=== PATIENT | male | born 1945 | race Caucasian/White ===

== ENCOUNTER 2019-02-22 10:20 | Day surgery (SDC) | payer MEDICARE, OTHER ==
[2019-02-21 10:38] LABS: BASOPHILS # (AUTO) 0.1 X10'3 (0-0.2); BASOPHILS % (AUTO) 1.3 % (0-1); EOSINOPHILS # (AUTO) 0.4 X10'3 (0-0.9); EOSINOPHILS % (AUTO) 5.3 % (0-6); HEMATOCRIT 39.4 % (42.0-52.0); HEMOGLOBIN 12.8 g/dl (14.0-17.9); LYMPHOCYTES # (AUTO) 1.5 X10'3 (1.1-4.8); LYMPHOCYTES % (AUTO) 19.8 % (21-51); MEAN CORPUSCULAR HEMOGLOBIN 30.7 PG (27.0-31.0); MEAN CORPUSCULAR HGB CONC 32.5 g/dL (33.0-36.5); MEAN CORPUSCULAR VOLUME 94.5 FL (78-98); MEAN PLATELET VOLUME 8.3 FL (7.4-10.4); MONOCYTES # (AUTO) 0.9 X10'3 (0-0.9); MONOCYTES % (AUTO) 11.9 % (2-12); NEUTROPHILS # (AUTO) 4.6 X10'3 (1.8-7.7); NEUTROPHILS % (AUTO) 61.7 % (42-75); PLATELET COUNT 327 X10'3 (140-440); RED BLOOD COUNT 4.17 X10'6 (4.70-6.10); RED CELL DISTRIBUTION WIDTH 14.8 % (11.5-14.5); WHITE BLOOD COUNT 7.5 X10'3 (4.5-11.0)
[2019-02-21 10:50] LABS: INR 1.1 INR; PARTIAL THROMBOPLASTIN TIME 29 SECONDS (22-32)
[2019-02-21 10:52] LABS: ALBUMIN 2.4 G/DL (3.4-5.0); ANION GAP 4 (8-16); BLOOD UREA NITROGEN 89 MG/DL (7-18); BUN/CREATININE RATIO 35.2 (5.4-32.0); CALCIUM 8.7 MG/DL (8.5-10.1); CHLORIDE 102 MMOL/L (99-107); CREATININE 2.53 MG/DL (0.60-1.10); GLUCOSE 192 MG/DL (70-104); POTASSIUM 4.2 MMOL/L (3.5-5.1); SODIUM 140 MMOL/L (135-145); TOTAL CARBON DIOXIDE 34.3 MMOL/L (24-32); eGFR 25 ML/MIN
[~2019-02-22] VITALS: Ht 175.3 cm; Wt 70.2 kg
[2019-02-22] VITALS (8 sets, daily range): BP systolic 127–134; BP diastolic 79–96
[2019-02-22] MEDS ORDERED: LORazepam 0.5 MG tablet PO PRN (10:40)
[2019-02-22] MEDS ORDERED: normal saline 1,000 ML IV SCH (10:40)
[2019-02-22] MEDS ORDERED: diphenhydrAMINE 25mg capsule PO PRN (10:40)
[2019-02-22] MEDS ORDERED: ASPI81TA52 PO (11:10)
[2019-02-22] MEDS ORDERED: PRED5TAB PO (11:10)
[2019-02-22] MEDS ORDERED: ONDA4TAB12 SL (11:10)
[2019-02-22] MEDS ORDERED: FURO40TA4 PO (11:10)
[2019-02-22] MEDS ORDERED: ALLO100T PO (11:10)
[2019-02-22] MEDS ORDERED: EZET10TA13 PO (11:10)
[2019-02-22] MEDS ORDERED: FLO0.4C PO (11:10)
[2019-02-22] MEDS ORDERED: NPH,100V SQ (11:10)
[2019-02-22] MEDS ORDERED: CARV-50 PO (11:10)
[2019-02-22] MEDS ORDERED: INSU100V5 IJ (11:10)
[2019-02-22] MEDS ORDERED: VENL75CA55 PO (11:10)
[2019-02-22] MEDS ORDERED: OMEP1CAP24 PO (11:10)
[2019-02-22] MEDS ORDERED: HYDR-4353 PO (11:10)
[2019-02-22] MEDS ORDERED: ALEN70TA60 PO (11:10)
[2019-02-22] MEDS ORDERED: midazolam 2 mg/2 ml injection ONE (12:36)
[2019-02-22] MEDS ORDERED: fentaNYL/PF 50MCG/1 ML 2ML syringe ONE (12:36)
[2019-02-22] MEDS ORDERED: LIDOcaine 1% (10mg/ml)w/preservative injection 20ml MDV ONE (12:36)
[2019-02-22] MEDS ORDERED: iohexol 350MG/ML 100ml bottle IV ONE (12:37)
[2019-02-22] MEDS ORDERED: proCHLORperazine 10 MG/2 ml inj IV PRN (13:50)
[2019-02-22] MEDS ORDERED: ondansetron/PF 4mg/2ml inj IV PRN (13:50)
[2019-02-22] MEDS ORDERED: OXAZEpam 15mg capsule PO PRN (13:50)
[2019-02-22] MEDS ORDERED: HYDROcodone/acetaminophen 5mg/325mg tablet PO PRN (13:55)
[2019-02-22] MEDS: HYDROcodone/acetaminophen 10/325mg tab PO PRN ×2 (14:21→17:32)
--- NOTE | 2019-02-22 15:25 | NUR ---
Pt HOB raised at 12:15 per MD orders-no changes in groin site, pt denies pain, pedal pulses X4 doppler.
== END 2019-02-22 17:07 | disposition home or self-care (01) ==
LOC: SSTAY O 10:20
PROVIDERS: ATTEND Internal Medicine Interventional Cardiology
DX: I25.118 Atherosclerotic heart disease of native coronary artery with other forms of angina pectoris (principal); I34.0 Nonrheumatic mitral (valve) insufficiency; G47.33 Obstructive sleep apnea (adult) (pediatric); E11.22 Type 2 diabetes mellitus with diabetic chronic kidney disease; E11.51 Type 2 diabetes mellitus with diabetic peripheral angiopathy without gangrene; I13.0 Hypertensive heart and chronic kidney disease with heart failure and stage 1 through stage 4 chronic kidney disease, or unspecified chronic kidney disease; K21.9 Gastro-esophageal reflux disease without esophagitis; M10.9 Gout, unspecified; I50.9 Heart failure, unspecified; M81.0 Age-related osteoporosis without current pathological fracture; N18.9 Chronic kidney disease, unspecified; Z79.899 Other long term (current) drug therapy; Z79.4 Long term (current) use of insulin; Z79.82 Long term (current) use of aspirin; Z99.2 Dependence on renal dialysis; Z87.891 Personal history of nicotine dependence
CPT/HCPCS: 36415; 80048; 82948; 85025; 85610; 85730; 93458; 99152; A6257; J1644; J2001; J2250; J3010; J7030; Q0163; Q9967; A4620; C1769

== ENCOUNTER 2019-03-08 15:24 | Inpatient (IN) | payer MEDICARE, OTHER ==
[~2019-03-08] VITALS: Ht 175.3 cm; Wt 69.1 kg
[~2019-03-08 15:24] MED LIST: ALEN70TA60 PO; ALLO100T PO; ASPI81TA52 PO; CARV-50 PO; EZET10TA13 PO; FLO0.4C PO; FURO40TA4 PO; HYDR-4353 PO; INSU100V5 SQ; NPH,100V SQ; OMEP1CAP24 PO; ONDA4TAB12 SL; PRED5TAB PO; VENL75CA55 PO
[2019-03-08 16:23] LABS: BASOPHILS # (AUTO) 0.1 X10'3 (0-0.2); BASOPHILS % (AUTO) 0.8 % (0-1); EOSINOPHILS # (AUTO) 0.2 X10'3 (0-0.9); HEMATOCRIT 35.5 % (42.0-52.0); HEMOGLOBIN 11.5 g/dl (14.0-17.9); LYMPHOCYTES # (AUTO) 0.7 X10'3 (1.1-4.8); LYMPHOCYTES % (AUTO) 9.8 % (21-51); MEAN CORPUSCULAR HEMOGLOBIN 30.4 PG (27.0-31.0); MEAN CORPUSCULAR HGB CONC 32.5 g/dL (33.0-36.5); MEAN CORPUSCULAR VOLUME 93.7 FL (78-98); MEAN PLATELET VOLUME 8.4 FL (7.4-10.4); MONOCYTES # (AUTO) 1.4 X10'3 (0-0.9); MONOCYTES % (AUTO) 20.5 % (2-12); NEUTROPHILS # (AUTO) 4.6 X10'3 (1.8-7.7); NEUTROPHILS % (AUTO) 65.9 % (42-75); PLATELET COUNT 214 X10'3 (140-440); RED BLOOD COUNT 3.79 X10'6 (4.70-6.10); RED CELL DISTRIBUTION WIDTH 15.4 % (11.5-14.5); WHITE BLOOD COUNT 6.9 X10'3 (4.5-11.0)
[2019-03-08 16:42] LABS: ALANINE AMINOTRANSFERASE 29 U/L (12-78); ALBUMIN 2.3 G/DL (3.4-5.0); ALBUMIN/GLOBULIN RATIO 0.5 (1.1-1.5); ALKALINE PHOSPHATASE 255 IU/L (46-116); ASPARTATE AMINO TRANSFERASE 21 U/L (10-37); BILIRUBIN,TOTAL 0.4 MG/DL (0.1-1.0); BLOOD UREA NITROGEN 88 MG/DL (7-18); BUN/CREATININE RATIO 16.2 (5.4-32.0); CALCIUM 8.5 MG/DL (8.5-10.1); CREATININE 5.42 MG/DL (0.60-1.10); GLUCOSE 224 MG/DL (70-104); TOTAL CARBON DIOXIDE 27.4 MMOL/L (24-32); TOTAL PROTEIN 6.8 G/DL (6.4-8.2); eGFR 10 ML/MIN
[2019-03-08 16:43] LABS: PARTIAL THROMBOPLASTIN TIME 35 SECONDS (22-32)
[2019-03-08] MEDS: DOBUTamine-DoBUTrex 500mg/D5W 250 ML IV SCH (17:30)
--- NOTE | 2019-03-08 17:30 | NUR ---
family would like to be called if there is any change in condition, Imelda courtneyr in law
[2019-03-08] MEDS ORDERED: OMEP20CA10 PO (17:37)
[2019-03-08] MEDS ORDERED: LISI2.5T2 PO (17:37)
[2019-03-08] MEDS ORDERED: LAMO25TA94 PO (17:37)
[2019-03-08] MEDS ORDERED: VENL37.589 PO (17:37)
[2019-03-08] MEDS ORDERED: NPH,100V SQ (17:37)
[2019-03-08 17:55] LABS: ANION GAP 9 (8-16); CHLORIDE 97 MMOL/L (99-107); SODIUM 133 MMOL/L (135-145)
[2019-03-08] MEDS ORDERED: acetaminophen 325mg tablet PO PRN (19:50)
[2019-03-08] MEDS ORDERED: HYDROcodone/acetaminophen 10/325mg tab PO PRN (19:50)
[2019-03-08] MEDS ORDERED: ondansetron/PF 4mg/2ml inj IV PRN (19:50)
[2019-03-08] MEDS: carVEDilol 12.5mg tablet PO SCH (20:00)
[2019-03-08] MEDS: furosemide 40mg tablet PO SCH (20:00)
[2019-03-08] MEDS ORDERED: dextrose ORAL solution 15 GM/59 ML bottle PO PRN ×2 (20:05)
[2019-03-08] MEDS ORDERED: MESSAGE TO PHARMACY PO ONE (20:05)
[2019-03-08] MEDS ORDERED: glucagon, human recombinant 1mg kit SUBCUT PRN (20:05)
[2019-03-08] MEDS ORDERED: dextrose 50%-water 50ml dispensing syringe IV PRN ×2 (20:05)
[2019-03-08] MEDS: lamoTRIgine 25mg tablet PO SCH (20:11)
[2019-03-08 20:32] LABS: HEMOGLOBIN A1C 7.4 % (4.5-6.2)
--- NOTE | 2019-03-08 20:34 | NUR ---
Rec'd report for CAROLYN Villanueva in the ER.
--- NOTE | 2019-03-08 20:39 | NUR ---
SBP SUB 100, COREG AND LASIX HELD.
--- NOTE | 2019-03-08 21:00 | NUR ---
Arrived from ER on a gurney, but was able to ambulate to bed with use of his cane.
[2019-03-08 21:45] VITALS: BP 99/52
[2019-03-08 22:00] VITALS: BP 110/46
[2019-03-08] MEDS: heparin, porcine 5000 units/ml vial SQ SCH (22:00)
[2019-03-08] MEDS: insulin glargine (Lantus) pen - multi-dose SQ SCH (22:03)
[2019-03-09] VITALS (14 sets, daily range): BP systolic 93–125; BP diastolic 38–63
--- NOTE | 2019-03-09 06:19 | NUR ---
Problems reprioritized. Patient report given, questions answered & plan of care reviewed with CAROLYN Cordoba.
--- NOTE | 2019-03-09 06:30 | NUR ---
Patient in room MED 314. I have received report from Eileen LEON and had the opportunity to ask questions and assume patient care.
[2019-03-09 06:58] LABS: PARTIAL THROMBOPLASTIN TIME 37 SECONDS (22-32)
[2019-03-09 07:01] LABS: EOSINOPHILS # (AUTO) 0.2 X10'3 (0-0.9); LYMPHOCYTES # (AUTO) 0.8 X10'3 (1.1-4.8); MEAN CORPUSCULAR HEMOGLOBIN 30.8 PG (27.0-31.0)
[2019-03-09 07:02] LABS: ALANINE AMINOTRANSFERASE 23 U/L (12-78); ALBUMIN 2.1 G/DL (3.4-5.0); ALBUMIN/GLOBULIN RATIO 0.5 (1.1-1.5); ALKALINE PHOSPHATASE 241 IU/L (46-116); ANION GAP 9 (8-16); ASPARTATE AMINO TRANSFERASE 11 U/L (10-37); BILIRUBIN,TOTAL 0.6 MG/DL (0.1-1.0); BLOOD UREA NITROGEN 83 MG/DL (7-18); BUN/CREATININE RATIO 16.1 (5.4-32.0); CALCIUM 8.7 MG/DL (8.5-10.1); CHLORIDE 96 MMOL/L (99-107); CREATININE 5.16 MG/DL (0.60-1.10); GLUCOSE 338 MG/DL (70-104); POTASSIUM 4.3 MMOL/L (3.5-5.1); SODIUM 133 MMOL/L (135-145); TOTAL CARBON DIOXIDE 27.6 MMOL/L (24-32); TOTAL PROTEIN 6.4 G/DL (6.4-8.2); eGFR 11 ML/MIN
[2019-03-09 07:03] LABS: BASOPHILS % (AUTO) 0.4 % (0-1); EOSINOPHILS % (AUTO) 2.7 % (0-6); HEMATOCRIT 33.4 % (42.0-52.0); LYMPHOCYTES % (AUTO) 10.2 % (21-51); MEAN CORPUSCULAR VOLUME 93.1 FL (78-98); MEAN PLATELET VOLUME 9.4 FL (7.4-10.4); MONOCYTES # (AUTO) 1.9 X10'3 (0-0.9); MONOCYTES % (AUTO) 23.1 % (2-12); NEUTROPHILS # (AUTO) 5.1 X10'3 (1.8-7.7); NEUTROPHILS % (AUTO) 63.6 % (42-75); PLATELET COUNT 222 X10'3 (140-440); RED BLOOD COUNT 3.59 X10'6 (4.70-6.10); RED CELL DISTRIBUTION WIDTH 14.7 % (11.5-14.5); WHITE BLOOD COUNT 8.1 X10'3 (4.5-11.0)
--- NOTE | 2019-03-09 07:30 | NUR ---
Patient is wearing his Lifevest, but the battery is , and his second battery is on the payroll administrator at home. Patient called a family member who stated they will bring in the backup battery later (but could not give RN a time estimate). Called Netta with [employer] to see if they could bring in a backup battery, which unfortunately she cannot. Patient is hooked up to bedside monitor. Will encourage patient to get his backup battery brought in sooner than later.
[2019-03-09] MEDS: tamsulosin 0.4mg capsule PO SCH (08:13)
[2019-03-09] MEDS: ezetimibe 10mg tablet PO SCH (08:13)
[2019-03-09] MEDS: lisinopril 2.5mg tablet PO SCH (08:14)
[2019-03-09] MEDS: aspirin 81mg tablet.DR PO SCH (08:14)
[2019-03-09] MEDS: carVEDilol 12.5mg tablet PO SCH ×2 (08:14→19:27)
[2019-03-09] MEDS: allopurinol 100mg tablet PO SCH (08:14)
[2019-03-09] MEDS: predniSONE 5mg tablet PO SCH (08:15)
[2019-03-09] MEDS: heparin, porcine 5000 units/ml vial SQ SCH ×2 (08:17→19:47)
[2019-03-09] MEDS: insulin Lispro (HumaLOG) vial - multi-dose SQ SCH ×4 (08:35→21:19)
[2019-03-09] MEDS: furosemide 40mg tablet PO SCH ×2 (09:42→19:27)
[2019-03-09] MEDS: lamoTRIgine 25mg tablet PO SCH ×2 (09:42→19:48)
[2019-03-09] MEDS: venlafaxine XR 37.5mg cap (Q24H) PO SCH (09:42)
[2019-03-09] MEDS: venlafaxine XR 75mg capsule (Q24H) PO SCH (09:43)
--- NOTE | 2019-03-09 12:03 | NUR ---
Patients daughter brought in his [employer] physical damage appraiser and back up battery. New battery placed in [employer].
--- NOTE | 2019-03-09 12:56 | NUR ---
DM consult: Pt with T1DM with current A1c 7.4 seen at bedside. Pt denies any questions about DM management at this time. Pt reports seeing an mud car worker every month and states he takes his insulin per rx without any difficulties. Written DM ed with referral to outpatient DM class and RD contact information provided. Pt currently on a renal diet with documented 25% PO intake not meeting nutrient needs. Pt reports low appetite x 2-3 weeks however reports no wt loss. Pt with ESRD on PD, encouraged PO intake of protein to meet the demands of dialysis. Pt states he eats protein bars at home. Pt agreeable to MD raz Cotto. Will continue to follow. Addendum: 03/09/19 at [address] Amended: Links added.
[2019-03-09] MEDS: HYDROcodone/acetaminophen 5mg/325mg tablet PO PRN ×2 (14:13→21:23)
--- NOTE | 2019-03-09 16:00 | NUR ---
Called Dr Samuel to touch base on patient's blood pressures, hanging out 90s/30s. No change in orders.
--- NOTE | 2019-03-09 18:00 | NUR ---
Patient in room MED 314. I have received report from CAROLYN Cordoba and had the opportunity to ask questions and assume patient care.
--- NOTE | 2019-03-09 18:51 | NUR ---
Problems reprioritized. Patient report given, questions answered & plan of care reviewed with Juhi LEON.
[2019-03-09] MEDS: insulin glargine (Lantus) pen - multi-dose SQ SCH (21:18)
[2019-03-10] VITALS (8 sets, daily range): BP systolic 93–131; BP diastolic 53–70
[2019-03-10 05:27] LABS: BASOPHILS # (AUTO) 0.1 X10'3 (0-0.2); BASOPHILS % (AUTO) 1.1 % (0-1); EOSINOPHILS # (AUTO) 0.3 X10'3 (0-0.9); EOSINOPHILS % (AUTO) 4.9 % (0-6); HEMATOCRIT 35.5 % (42.0-52.0); HEMOGLOBIN 11.7 g/dl (14.0-17.9); LYMPHOCYTES # (AUTO) 0.8 X10'3 (1.1-4.8); LYMPHOCYTES % (AUTO) 12.9 % (21-51); MEAN CORPUSCULAR HEMOGLOBIN 30.6 PG (27.0-31.0); MEAN CORPUSCULAR VOLUME 92.6 FL (78-98); MEAN PLATELET VOLUME 9.2 FL (7.4-10.4); MONOCYTES # (AUTO) 1.4 X10'3 (0-0.9); MONOCYTES % (AUTO) 21.5 % (2-12); NEUTROPHILS # (AUTO) 3.8 X10'3 (1.8-7.7); NEUTROPHILS % (AUTO) 59.6 % (42-75); PLATELET COUNT 231 X10'3 (140-440); RED BLOOD COUNT 3.83 X10'6 (4.70-6.10); RED CELL DISTRIBUTION WIDTH 15.2 % (11.5-14.5); WHITE BLOOD COUNT 6.4 X10'3 (4.5-11.0)
[2019-03-10 05:46] LABS: PARTIAL THROMBOPLASTIN TIME 33 SECONDS (22-32)
[2019-03-10 05:52] LABS: ALANINE AMINOTRANSFERASE 20 U/L (12-78); ALBUMIN 2.1 G/DL (3.4-5.0); ALBUMIN/GLOBULIN RATIO 0.5 (1.1-1.5); ALKALINE PHOSPHATASE 230 IU/L (46-116); ANION GAP 9 (8-16); ASPARTATE AMINO TRANSFERASE 9 U/L (10-37); BILIRUBIN,TOTAL 0.5 MG/DL (0.1-1.0); BLOOD UREA NITROGEN 76 MG/DL (7-18); BUN/CREATININE RATIO 14.6 (5.4-32.0); CALCIUM 8.6 MG/DL (8.5-10.1); CHLORIDE 95 MMOL/L (99-107); CREATININE 5.22 MG/DL (0.60-1.10); PHOSPHORUS 6.6 MG/DL (2.3-4.5); POTASSIUM 4.6 MMOL/L (3.5-5.1); SODIUM 132 MMOL/L (135-145); TOTAL PROTEIN 6.6 G/DL (6.4-8.2); eGFR 11 ML/MIN
--- NOTE | 2019-03-10 06:20 | NUR ---
Patient in room MED 314. I have received report from CAROLYN LEAHY, and had the opportunity to ask questions and assume patient care.
[2019-03-10 06:24] LABS: GLUCOSE 468 MG/DL (70-104)
--- NOTE | 2019-03-10 06:28 | NUR ---
Problems reprioritized. Patient report given, questions answered & plan of care reviewed with CAROLYN Vogt.
[2019-03-10 07:28] LABS: TOTAL CELLS COUNTED 100
[2019-03-10 07:29] LABS: ANISOCYTOSIS 1+; PLATELET ESTIMATE NORMAL
[2019-03-10] MEDS: tamsulosin 0.4mg capsule PO SCH (07:43)
[2019-03-10] MEDS: lamoTRIgine 25mg tablet PO SCH (07:43)
[2019-03-10] MEDS: aspirin 81mg tablet.DR PO SCH (07:43)
[2019-03-10] MEDS: predniSONE 5mg tablet PO SCH (07:43)
[2019-03-10] MEDS: allopurinol 100mg tablet PO SCH (07:44)
[2019-03-10] MEDS: ezetimibe 10mg tablet PO SCH (07:44)
[2019-03-10] MEDS: lisinopril 2.5mg tablet PO SCH (07:44)
[2019-03-10] MEDS: carVEDilol 12.5mg tablet PO SCH (07:44)
[2019-03-10] MEDS: furosemide 40mg tablet PO SCH (07:44)
[2019-03-10] MEDS: venlafaxine XR 75mg capsule (Q24H) PO SCH (07:44)
[2019-03-10] MEDS: venlafaxine XR 37.5mg cap (Q24H) PO SCH (07:44)
[2019-03-10] MEDS: heparin, porcine 5000 units/ml vial SQ SCH (07:45)
[2019-03-10] MEDS: DOBUTamine-DoBUTrex 500mg/D5W 250 ML IV SCH (07:47)
[2019-03-10] MEDS: insulin Lispro (HumaLOG) vial - multi-dose SQ SCH (07:52)
[2019-03-10] MEDS ORDERED: HEPA500017 SQ (12:18)
--- NOTE | 2019-03-10 15:35 | NUR ---
Problems reprioritized. Patient report given, questions answered & plan of care reviewed with CARRINGTON [facility] NURSE [facility].
--- NOTE | 2019-03-10 15:56 | NUR ---
PATIENT PICKED UP FOR AMBULANCE TRANSFER TO [facility]. PATIENT IS ALERT, ORIENTED, CALM, AND COOPERATIVE WITH TRANSFER. PATIENT'S GIRLFRIEND IS AT BEDSIDE AND HIS DAUGHTER IN LAW WAS CALLED AND INFORMED OF TRANSFER. ALL BELONGINGS ACCOUNTED FOR AND TAKEN WITH AMBULANCE PERSONNEL.
== END 2019-03-10 15:55 | disposition short-term general hospital (02) | DRG 280 ==
LOC: ER 15:24 → MED 3N 19:50 → CMPBEDREQ 20:49
PROVIDERS: ADMIT Internal Medicine Critical Care Medicine; ATTEND Internal Medicine Critical Care Medicine
PROC: 3E1M39Z Irrigation of Peritoneal Cavity using Dialysate, Percutaneous Approach (ICD-10-PCS; principal; 2019-03-08)
PROC: 3E1M39Z Irrigation of Peritoneal Cavity using Dialysate, Percutaneous Approach (ICD-10-PCS; 2019-03-09)
DX: I21.A1 Myocardial infarction type 2 (principal); N18.6 End stage renal disease; I13.2 Hypertensive heart and chronic kidney disease with heart failure and with stage 5 chronic kidney disease, or end stage renal disease; I50.22 Chronic systolic (congestive) heart failure; I50.84 End stage heart failure; I25.10 Atherosclerotic heart disease of native coronary artery without angina pectoris; E11.22 Type 2 diabetes mellitus with diabetic chronic kidney disease; E78.00 Pure hypercholesterolemia, unspecified; G47.33 Obstructive sleep apnea (adult) (pediatric); I25.5 Ischemic cardiomyopathy; J44.9 Chronic obstructive pulmonary disease, unspecified; K21.9 Gastro-esophageal reflux disease without esophagitis; I34.2 Nonrheumatic mitral (valve) stenosis; M81.0 Age-related osteoporosis without current pathological fracture; I34.0 Nonrheumatic mitral (valve) insufficiency; E78.5 Hyperlipidemia, unspecified; G89.29 Other chronic pain; M10.9 Gout, unspecified; R62.7 Adult failure to thrive; Z68.22 Body mass index [BMI] 22.0-22.9, adult; Z88.2 Allergy status to sulfonamides; Z88.1 Allergy status to other antibiotic agents; Z88.8 Allergy status to other drugs, medicaments and biological substances; Z79.82 Long term (current) use of aspirin; Z79.899 Other long term (current) drug therapy; I25.2 Old myocardial infarction; Z79.4 Long term (current) use of insulin; Z87.891 Personal history of nicotine dependence; Z99.2 Dependence on renal dialysis; Z95.1 Presence of aortocoronary bypass graft
CPT/HCPCS: 36415; 71045; 80053; 82948; 83036; 84100; 84484; 85025; 85610; 85730; 87070; 93005; 93306; 96365; 99291; G0378; J1250; J1644; J1815; J7512

== ENCOUNTER 2019-04-25 22:16 | Emergency (ER) | payer MEDICARE, OTHER ==
[~2019-04-25] VITALS: Ht 175.3 cm; Wt 70.5 kg
[~2019-04-25 22:16] MED LIST changes: -ALEN70TA60 PO; +CLOP75TA35 PO; +EFF37.5XRC PO; -EZET10TA13 PO; +EZET10TA14 PO; -FURO40TA4 PO; -HYDR-4353 PO; +INSU100I40; +MULT-1172; +NIT10P TD; +NPH,100I; -NPH,100V SQ; -OMEP1CAP24 PO; +ONDA4TAB11 PO; -ONDA4TAB12 SL; +VIT1TABL48 PO
[2019-04-25 22:58] LABS: BASOPHILS # (AUTO) 0.1 X10'3 (0-0.2); BASOPHILS % (AUTO) 0.5 % (0-1); EOSINOPHILS # (AUTO) 0.6 X10'3 (0-0.9); EOSINOPHILS % (AUTO) 5.8 % (0-6); HEMATOCRIT 31.6 % (42.0-52.0); HEMOGLOBIN 10.4 g/dl (14.0-17.9); LYMPHOCYTES # (AUTO) 0.9 X10'3 (1.1-4.8); MEAN PLATELET VOLUME 7.5 FL (7.4-10.4); MONOCYTES # (AUTO) 0.9 X10'3 (0-0.9); MONOCYTES % (AUTO) 8.6 % (2-12); NEUTROPHILS # (AUTO) 8.3 X10'3 (1.8-7.7); NEUTROPHILS % (AUTO) 77.1 % (42-75); PLATELET COUNT 175 X10'3 (140-440); RED BLOOD COUNT 3.36 X10'6 (4.70-6.10); RED CELL DISTRIBUTION WIDTH 19.2 % (11.5-14.5); WHITE BLOOD COUNT 10.8 X10'3 (4.5-11.0)
[2019-04-25 23:07] LABS: ALANINE AMINOTRANSFERASE 15 U/L (12-78); ALBUMIN 2.2 G/DL (3.4-5.0); ALBUMIN/GLOBULIN RATIO 0.7 (1.1-1.5); ALKALINE PHOSPHATASE 120 IU/L (46-116); ANION GAP 10 (8-16); ASPARTATE AMINO TRANSFERASE 16 U/L (10-37); BILIRUBIN,TOTAL 0.3 MG/DL (0.1-1.0); BLOOD UREA NITROGEN 80 MG/DL (7-18); BUN/CREATININE RATIO 10.3 (5.4-32.0); CALCIUM 8.2 MG/DL (8.5-10.1); CHLORIDE 102 MMOL/L (99-107); CREATININE 7.73 MG/DL (0.60-1.10); GLUCOSE 139 MG/DL (70-104); PARTIAL THROMBOPLASTIN TIME 28 SECONDS (22-32); SODIUM 140 MMOL/L (135-145); TOTAL CARBON DIOXIDE 28.2 MMOL/L (24-32); TOTAL PROTEIN 5.5 G/DL (6.4-8.2); eGFR 7 ML/MIN
--- NOTE | 2019-04-25 23:44 | NUR ---
PT CURRENTLY EATING A SANDWICH - HIS DAUGHTER IN LAW IS AT BEDSIDE - PT WILL BE GAIT TESTED AFTER HE FINISHES EATING.
[2019-04-26] MEDS ORDERED: ondansetron/PF 4mg/2ml inj IV ONE (00:25)
--- NOTE | 2019-04-26 00:30 | NUR ---
PT SAT UP AT SIDE OF BED FOR FEET DANGLE AND GAIT TEST. PT WAS ABLE TO INDDEPENDENTLY POSITION HIMSELF TO SIDE OF BED. AMBULATED SEJAL HALLWAY WITH STEADY GAIT. C/O OF NAUSEA WITH THE WALK WILL NOTIFY MED OF NAUSEA
--- NOTE | 2019-04-26 00:30 | NUR ---
MEDICATED PT WITH ZOFRAN FOR NAUSEA.
[2019-04-26 00:53] LABS: CLARITY,URINE CLEAR (Clear); COLOR,URINE YELLOW (Yellow); GLUCOSE, URINE NEGATIVE (Neg); KETONES,URINE NEGATIVE (Neg); LEUKOCYTE ESTERASE ,URINE NEGATIVE (Neg); NITRITES, URINE NEGATIVE (Neg); OCCULT BLOOD,URINE NEGATIVE (Neg); PROTEIN,URINE TRACE mg/dl (Neg); UROBILINOGEN,URINE 0.2 E.U/dL (0.2-1.0)
[2019-04-26 00:57] LABS: UA COLLECTION TYPE CLN CATCH MIDSTREAM
[2019-04-26 00:59] LABS: BACTERIA,URINE FEW /HPF (Neg); RBC,URINE 0-2 /HPF (0-2); SQUAMOUS EPITHELIAL CELL,UR FEW /LPF (FEW); WBC,URINE 0-4 /HPF (0-4)
[2019-04-26 01:46] VITALS: BP 132/67
== END 2019-04-26 02:10 | disposition home or self-care (01) ==
LOC: ER 22:17
DX: E11.649 Type 2 diabetes mellitus with hypoglycemia without coma (principal); I25.10 Atherosclerotic heart disease of native coronary artery without angina pectoris; G89.29 Other chronic pain; I25.2 Old myocardial infarction; I13.0 Hypertensive heart and chronic kidney disease with heart failure and stage 1 through stage 4 chronic kidney disease, or unspecified chronic kidney disease; E11.22 Type 2 diabetes mellitus with diabetic chronic kidney disease; N18.9 Chronic kidney disease, unspecified; Z87.891 Personal history of nicotine dependence; Z98.890 Other specified postprocedural states; Z98.61 Coronary angioplasty status; Z79.4 Long term (current) use of insulin; Z94.0 Kidney transplant status; Z88.8 Allergy status to other drugs, medicaments and biological substances; Z79.899 Other long term (current) drug therapy; Z79.82 Long term (current) use of aspirin
CPT/HCPCS: 36415; 80053; 81001; 82948; 84484; 85025; 85610; 85730; 93005; 96374; 99284; J2405